=== PATIENT | female | born 1970 | race African-American/Black ===

== ENCOUNTER 2017-01-30 16:26 | Emergency (ER) | payer OTHER ==
[2017-01-30 17:06] VITALS: BP 158/98; PULSE 98; TEMP 98.2
[2017-01-30] MEDS ORDERED: IBUPROFEN 600 MG TABLET (FP) PO ONE ×2 (17:38→17:40)
--- NOTE | 2017-01-30 17:43 | PDOC ---
History of Present Illness - General Chief Complaint: Injury Stated Complaint: LT FOOT PAIN Time Seen by Provider: 01/30/17 17:23 History Source: Patient Exam Limitations: No Limitations - History of Present Illness Initial Comments: 01/30/17 17:44 Chief complaint: Left foot and ankle pain twisted when fell this morning History of present illness: She is a 46 year old female with a history of rheumatoid arthritis and a complaining of left dorsal lateral foot and ankle pain since twisting her left ankle when she fell earlier today. Patient reports that she fell again at work. Patient reports having minimal pain in her right upper arm. Patient denies hitting her head or having any other injuries. Patient reports that she's been favoring her right leg and now feels pain in her right lower leg. Patient has minimal swelling of her left dorsal foot and ankle. She didn not take anything for pain. Patient is ambulating with limp. Occurred: reports: this morning Severity: Yes: moderate Lower Extremity Pain Location: left: foot, ankle Method of Injury: Yes: fell, twisted Modifying Factors: improves with: None Lower Ext. Injury Location - Specific Injury Location Ankle: left pain Foot: left foot pain, left foot swelling (minimal ) Extremity Pain Location - Extremity Pain Location Extremity Pain Locations: left: foot (dorsal lateral aspect), ankle (lateral ) Past History - Past Medical History Allergies/Adverse Reactions: Allergies Allergy/AdvReac Type Severity Reaction Status Date / Time No Known Allergies Allergy Verified 01/30/17 16:59 Home Medications: Ambulatory Orders NK [No Known Home Medication] 01/30/17 Other medical history: denies - Immunization History Immunization Up to Date: Yes - Psycho/Social/Smoking Cessation Hx Anxiety: No Suicidal Ideation: No Smoking Status: No Smoking History: Current every day smoker Have you smoked in the past 12 months: Yes Number of Cigarettes Smoked Daily: 20 Cigars Per Day: 0 Information on smoking cessation initiated: Yes 'Breaking Loose' booklet given: 01/30/17 Hx Alcohol Use: Yes (socially) Drug/Substance Use Hx: No Substance Use Type: Alcohol Review of Systems - Review of Systems Able to Perform ROS?: Yes Constitutional: No: Symptoms Reported HEENTM: No: Symptoms Reported Respiratory: No: Symptoms reported Cardiac (ROS): No: Symptoms Reported ABD/GI: No: Symptoms Reported : No: Symptoms Reported Musculoskeletal: Yes: Joint Pain (left dorsal lateral foot), Joint Swelling ( minimal swelling dorsal lateral foot ) Integumentary: No: Symptoms Reported Neurological: No: Symptoms reported *Physical Exam - Vital Signs Last Vital Signs Temp Pulse Resp BP Pulse Ox 98.2 F 98 H 20 158/98 99 01/30/17 16:59 01/30/17 16:59 01/30/17 16:59 01/30/17 16:59 01/30/17 16:59 - Physical Exam General Appearance: Yes: Appropriately Dressed Vascular Pulses: Doralis-Pedis (L): 4+ Extremity: positive: Normal Capillary Refill, Tender (left dorsal lateral foot, left lateral ankle), Swelling (left lateral ankle). negative: Normal Range of Motion (at left ankle) Integumentary: positive: Normal Color Neurologic: positive: Normal Response, Respond to painful stimul, Responsive. negative: Numbness, Sensory Deficit (left foot/ankle) Deep Tendon Reflexes: Ankle (L): 4+ Procedures - Consent Consent obtained: From Patient - Splinting Splint Location: Left: Foot Pre-Proc Neuro Vasc Exam: normal Post-Proc Neuro Vasc Exam: normal Gwyn Bandage: 3" Complications: No Progress: 01/30/17 18:11 crutches Medical Decision Making - Medical Decision Making 01/30/17 17:52 She is a 46 year old female with a history of rheumatoid arthritis and a complaining of left dorsal lateral foot and ankle pain since twisting her left ankle when she fell earlier today. Patient reports that she fell again at work. Patient reports having minimal pain in her right upper arm. Patient denies hitting her head or having any other injuries. Patient reports that she's been favoring her right leg and now feels pain in her right lower leg. Patient has minimal swelling of her left dorsal foot and ankle. She didn not take anything for pain. Patient is ambulating with limp. 01/30/17 17:52 r/o left ankle/foot fracture PLAN: xray left foot/ankle ibuprofen 600 mg po now gwyn wrap 3 inch left foot and crutches 01/30/17 18:11 01/30/17 18:21 01/30/17 18:45 *DC/Admit/Observation/Transfer Diagnosis at time of Disposition: Sprain of left foot Qualifiers: Encounter type: initial encounter Qualified Code(s): S93.602A - Unspecified sprain of left foot, initial encounter Diagnosis at time of Disposition: (Ruled Out): Left ankle sprain - Discharge Dispostion Disposition: HOME Condition at time of disposition: Stable - Referrals Referrals: Juan David Huang MD [Primary Care Provider] - Jonathan Villanueva MD [Staff Physician] - - Patient Instructions Additional Instructions: Elevate left foot as much as possible and apply ice every 2 hours for 10-15 minutes today and tomorrow follow up with orthopedist in the next few days for further evaluation use crutches for ambulation until pain resolves take 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
== END 2017-01-30 19:02 | disposition home or self-care (01) ==
LOC: JER 16:26 → JERFT 16:26
DX: S93.692A Other sprain of left foot, initial encounter (principal); W19.XXXA Unspecified fall, initial encounter; Y93.89 Activity, other specified; Y92.89 Other specified places as the place of occurrence of the external cause; Y99.0 Civilian activity done for income or pay; M06.80 Other specified rheumatoid arthritis, unspecified site
CPT/HCPCS: 73610-TC-LT; 73630-TC-LT; 99281-25

== ENCOUNTER 2017-03-09 09:01 | Emergency (ER) | payer OTHER ==
[2017-03-09 09:06] VITALS: BP 162/92; PULSE 96; TEMP 98.5; BMI 34.4
--- NOTE | 2017-03-09 09:33 | PDOC ---
History of Present Illness - General Chief Complaint: Eye Problem Stated Complaint: EYE PROBLEM Time Seen by Provider: 03/09/17 09:23 History Source: Patient Exam Limitations: No Limitations - History of Present Illness Initial Comments: 03/09/17 11:37 46 yr female with c/o bilateral eye itching and discharge. started in left eye 2 days ago. no fever no URI symptoms. no medical history. 03/09/17 11:39 Past History - Past Medical History Allergies/Adverse Reactions: Allergies Allergy/AdvReac Type Severity Reaction Status Date / Time No Known Allergies Allergy Verified 03/09/17 09:02 Home Medications: Ambulatory Orders Sulfacetamide Sodium 10% [Bleph-10] 2 drop OU Q4H #2 bottle 03/09/17 Other medical history: none - Immunization History Immunization Up to Date: Yes - Psycho/Social/Smoking Cessation Hx Anxiety: No Suicidal Ideation: No Smoking Status: No Smoking History: Current every day smoker Have you smoked in the past 12 months: Yes Number of Cigarettes Smoked Daily: 20 Cigars Per Day: 0 Information on smoking cessation initiated: Yes 'Breaking Loose' booklet given: 03/09/17 Hx Alcohol Use: No Drug/Substance Use Hx: No Substance Use Type: None Review of Systems - Review of Systems Able to Perform ROS?: Yes Is the patient limited Maltese proficient: No Constitutional: No: Symptoms Reported HEENTM: Yes: Symptoms Reported, See HPI Respiratory: No: Symptoms reported Cardiac (ROS): No: Symptoms Reported ABD/GI: No: Symptoms Reported : No: Symptoms Reported Musculoskeletal: No: Symptoms Reported Integumentary: No: Symptoms Reported Neurological: No: Symptoms reported *Physical Exam - Vital Signs Last Vital Signs Temp Pulse Resp BP Pulse Ox 98.5 F 96 H 18 162/92 100 03/09/17 09:04 03/09/17 09:04 03/09/17 09:04 03/09/17 09:04 03/09/17 09:04 - Physical Exam General Appearance: Yes: Nourished, Appropriately Dressed HEENT: positive: EOMI, JO-ANN, Normal ENT Inspection, TMs Normal, Pharynx Normal, Other (crusted discharge both eyes, mild conjunctival erythema, EOMI no pain no facial tenderness ) Neck: positive: Supple Respiratory/Chest: positive: Normal Breath Sounds Cardiovascular: positive: Regular Rate Gastrointestinal/Abdominal: positive: Normal Bowel Sounds, Soft Musculoskeletal: positive: Normal Inspection Extremity: positive: Normal Capillary Refill, Normal Inspection, Normal Range of Motion Integumentary: positive: Normal Color, Dry, Warm Neurologic: positive: Fully Oriented, Alert, Normal Mood/Affect, Normal Response , Motor Strength 01/03 Medical Decision Making - Medical Decision Making 03/09/17 11:41 cc: bilateral itching to eyes with discharge started yesterday in the left eye now in both no URI symptoms, no vision changes or headache will treat for conjunctivitis *DC/Admit/Observation/Transfer Diagnosis at time of Disposition: Conjunctivitis Qualifiers: Conjunctivitis type: acute Acute conjunctivitis type: unspecified Laterality: bilateral Qualified Code(s): H10.33 - Unspecified acute conjunctivitis, bilateral - Discharge Dispostion Disposition: HOME Condition at time of disposition: Good - Prescriptions Prescriptions: Sulfacetamide Sodium 10% [Bleph-10] 2 drop OU Q4H #2 bottle - Referrals Referrals: Juan David Huang MD [Primary Care Provider] - Bentley Christian MD [Staff Physician] - - Patient Instructions Printed Discharge Instructions: DI for Conjunctivitis Additional Instructions: wash hands frequently to avoid spreading use the drops as directed for 5 days wash eyes with cotton ball soaked in warm water to remove crusting drainage follow with the eye doctor next week for follow up exam call Friday to set up appointment
== END 2017-03-09 09:44 | disposition home or self-care (01) ==
LOC: JERFT 09:01
DX: H10.33 Unspecified acute conjunctivitis, bilateral (principal)
CPT/HCPCS: 99281-25

== ENCOUNTER 2017-06-21 07:56 | Emergency (ER) | payer OTHER ==
[2017-06-21 08:07] VITALS: BP 151/95; PULSE 88; TEMP 98.1; BMI 33.7
[2017-06-21] MEDS ORDERED: diphenhydrAMINE HCL 25 MG CAPSULE (FP) PO ONE ×2 (08:36→08:39)
--- NOTE | 2017-06-21 08:43 | PDOC ---
"History of Present Illness - General Chief Complaint: Rash Stated Complaint: RASH Time Seen by Provider: 06/21/17 08:22 History Source: Patient Exam Limitations: No Limitations - History of Present Illness Initial Comments: 06/21/17 08:41 My chief complaint: Itchy painful rash right lower abdomen around lower back History of present illness: Patient is a 47-year-old female with no significant medical problems here today complaining of an itchy painful rash that started approximately on 06/11/2017 on her right lower abdomen and has spread around to her right lower back. Patient reports having chickenpox as a child. Patient reports that area is extremely painful especially at night. Patient has been taking acetaminophen without relief of pain. Timing/Duration: getting worse Severity: severe Associated Symptoms: reports: rash (along dermatone rt. lower abdomen around to rt. lower back ) Past History - Past Medical History Allergies/Adverse Reactions: Allergies Allergy/AdvReac Type Severity Reaction Status Date / Time No Known Allergies Allergy Verified 06/21/17 08:03 Home Medications: Ambulatory Orders Sulfacetamide Sodium 10% [Bleph-10 Ophthalmic Solution -] 2 drop OU Q4H #2 bottle 03/09/17 Oxycodone HCl/Acetaminophen [Percocet 5-325 mg Tablet] 1 tab PO Q6H PRN #12 tablet MDD 4 06/21/17 Other medical history: NONE - Immunization History Immunization Up to Date: Yes - Suicide/Smoking/Psychosocial Hx Smoking Status: No Smoking History: Current every day smoker Have you smoked in the past 12 months: Yes Number of Cigarettes Smoked Daily: 20 Cigars Per Day: 0 Information on smoking cessation initiated: No 'Breaking Loose' booklet given: 03/09/17 Hx Alcohol Use: Yes (SOCIAL) Drug/Substance Use Hx: No Substance Use Type: None Review of Systems - Review of Systems Able to Perform ROS?: Yes Constitutional: No: Symptoms Reported HEENTM: No: Symptoms Reported Respiratory: No: Symptoms reported Cardiac (ROS): No: Symptoms Reported ABD/GI: No: Symptoms Reported : No: Symptoms Reported Musculoskeletal: No: Symptoms Reported Integumentary: Yes: Rash (tiny scabbed areas rt. lower abdomen radiates around to lower back slightly pruritic and painful) Neurological: No: Symptoms reported *Physical Exam - Vital Signs Last Vital Signs Temp Pulse Resp BP Pulse Ox 98.1 F 88 20 151/95 100 06/21/17 08:00 06/21/17 08:00 06/21/17 08:00 06/21/17 08:00 06/21/17 08:00 - Physical Exam General Appearance: Yes: Appropriately Dressed Respiratory/Chest: positive: Lungs Clear, Normal Breath Sounds. negative: Chest Tender, Respiratory Distress Cardiovascular: positive: Regular Rhythm, Regular Rate, S1, S2 Integumentary: positive: Rash (tiny scabbed area non confluent rt. lower abdomen / radiates around to lower back ) Neurologic: positive: Alert, Normal Response, Responsive Medical Decision Making - Medical Decision Making 06/21/17 08:43 Patient is a 47-year-old female with no significant medical problems here today complaining of an itchy painful rash that started approximately on 06/11/2017 on her right lower abdomen and has spread around to her right lower back. Patient reports having chickenpox as a child. Patient reports that area is extremely painful especially at night. Patient has been taking acetaminophen without relief of pain. Herpetic Zoster PLAN: BENADRYL 25 MG PO NOW THAN EVERY 6 HRS PRN PERCOCET 5MG/325MG PO NOW THAN EVBERY 6 HRS PRN # 12 TABS FOLLOW UP WITH PCP AND NEUROLOGIST 06/21/17 08:57 Search Terms: Rosa Rubin, 1970 Search Date: 06/21/2017 08:56:07 AM The Drug Utilization Report below displays all of the controlled substance prescriptions, if any, that your patient has filled in the last twelve months. The information displayed on this report is compiled from pharmacy submissions to the Department, and accurately reflects the information as submitted by the pharmacies. This report was requested by: Elissa Byrd | Reference #: [id number] *DC/Admit/Observation/Transfer Diagnosis at time of Disposition: Herpes zoster Qualifiers: Herpes zoster complications: without complications Qualified Code(s): B02.9 - Zoster without complications - Discharge Dispostion Disposition: HOME Condition at time of disposition: Stable - Prescriptions Prescriptions: Oxycodone HCl/Acetaminophen [Percocet 5-325 mg Tablet] 1 tab PO Q6H PRN #12 tablet MDD 4 PRN Reason: Severe Pain - Referrals Referrals: Juan David Huang MD [Primary Care Provider] - Rigoberto Roberts MD [Staff Physician] - - Patient Instructions Additional Instructions: fOLLOW UP WITH primary care provider as soon as possible follow up with neurologist for further evaluation Wash her hands after scratching area and avoid being around anyone You may purchase diphenhydramine tablets and take as directed for itchiness Return to emergency room if symptoms worsen or any new symptoms develop PATIENT voiced understanding of discharge instructions and all questions were answered"
== END 2017-06-21 08:52 | disposition home or self-care (01) ==
LOC: JER 07:56 → JERFT 07:56
DX: B02.9 Zoster without complications (principal); F17.210 Nicotine dependence, cigarettes, uncomplicated
CPT/HCPCS: 99281-25

== ENCOUNTER 2017-09-22 18:19 | Inpatient (IN) | payer OTHER ==
--- NOTE | 2017-09-22 18:50 | PDOC ---
Rapid Medical Evaluation Chief Complaint: CVA/TIA Time Seen by Provider: 09/22/17 18:45 Medical Evaluation: Allergies Allergy/AdvReac Type Severity Reaction Status Date / Time No Known Allergies Allergy Verified 09/22/17 18:39 Vital Signs Temp Pulse Resp BP Pulse Ox 98.0 F 95 H 18 139/71 100 09/22/17 18:40 09/22/17 18:40 09/22/17 18:40 09/22/17 18:40 09/22/17 18:40 09/22/17 18:45 The patient presents with a chief complaint of: [Back pain, neck pain swelling to the right eyelid. Was seen by the MD, because of the pain was sent to the ER for evaluation. ] I have performed a brief in-person evaluation of this patient. Pertinent physical exam findings: vss, [Minor swelling to the right eyelid. Lungs clear, RRR. Steady gait. ] I have ordered the following: None The patient will proceed to the ED for further evaluation. Discharge Disposition - Diagnosis Chronic neck and back pain Swollen eyelid Qualifiers: Laterality: right Qualified Code(s): H02.843 - Edema of right eye, unspecified eyelid TIA (transient ischemic attack) Qualifiers: Transient cerebral ischemia type: unspecified Qualified Code(s): G45.9 - Transient cerebral ischemic attack, unspecified - Discharge Dispostion Disposition: HOME Condition at time of disposition: Improved - Prescriptions - Referrals - Patient Instructions - Post Discharge Activity
--- NOTE | 2017-09-22 20:54 | PDOC ---
History of Present Illness - General Chief Complaint: CVA/TIA Stated Complaint: neck, back pain, ptosis PCP SENT Time Seen by Provider: 09/22/17 18:45 History Source: Patient - History of Present Illness Initial Comments: 09/22/17 21:09 47 year old female with right sided shoulder and back pain with right eye ptosis swelling since this morning. patient reports with chronic back pain today worsening right shoulder/ neck pain with numbness to right side. patient was send by [facility] for evaluation. 09/22/17 23:32 Past History - Past Medical History Allergies/Adverse Reactions: Allergies Allergy/AdvReac Type Severity Reaction Status Date / Time No Known Allergies Allergy Verified 09/22/17 18:39 Home Medications: Ambulatory Orders Sulfacetamide Sodium 10% [Bleph-10 Ophthalmic Solution -] 2 drop OU Q4H #2 bottle 03/09/17 Oxycodone HCl/Acetaminophen [Percocet 5-325 mg Tablet] 1 tab PO Q6H PRN #12 tablet MDD 4 06/21/17 COPD: No DVT: No HTN: Yes Other medical history: neck, ra, - Immunization History Immunization Up to Date: Yes - Suicide/Smoking/Psychosocial Hx Smoking Status: Yes Smoking History: Current every day smoker Have you smoked in the past 12 months: Yes Number of Cigarettes Smoked Daily: 20 Cigars Per Day: 0 Information on smoking cessation initiated: Yes 'Breaking Loose' booklet given: 03/09/17 Hx Alcohol Use: Yes (SOCIAL) Drug/Substance Use Hx: No Substance Use Type: None Neuro Specific PMHX - Complaint Specific PMHX Other Neuro History: chronic back pain Review of Systems - Review of Systems Able to Perform ROS?: Yes Is the patient limited French proficient: No HEENTM: Yes: Eye Pain (right eye, droopy eye lid) Neurological: Yes: Weakness *Physical Exam - Vital Signs Last Vital Signs Temp Pulse Resp BP Pulse Ox 98.0 F 95 H 18 139/71 100 09/22/17 18:40 09/22/17 18:40 09/22/17 18:40 09/22/17 18:40 09/22/17 18:40 - Physical Exam General Appearance: Yes: Appropriately Dressed HEENT: positive: Other (+ EOM, + right eyelid ptosis) Respiratory/Chest: positive: Lungs Clear, Normal Breath Sounds Cardiovascular: positive: Regular Rhythm, Regular Rate Gastrointestinal/Abdominal: positive: Normal Bowel Sounds, Soft Musculoskeletal: positive: Vertebral Tenderness (+ cernical neck tenderness) Extremity: positive: Normal Capillary Refill, Normal Inspection, Normal Range of Motion Integumentary: positive: Normal Color, Dry, Warm Neurologic: positive: Fully Oriented, Alert, Normal Mood/Affect NIH Stroke Scale - Last Known Well Date/Time & Onset Date Last Known Well: 09/22/17 Time Last Known Well: 08:00 - Initial Evaluation Level of consciousness: Alert Ask patient the month and their age: Answers both correctly Ask patient to open & close eyes; make fist and let go: Obeys both correctly Best gaze (horizontal eye movement): Normal Visual field testing: No visual field loss Facial paresis (Show teeth/raise eyebrows/close eyes tight): Minor paralysis ( flattened nasolabial fold, asymmetry on smiling) Motor Function: Left Arm: Normal Motor Function: Right Arm: Normal (extends arm 90 (or 45) degrees for 10 seconds without drift Motor Function: Left Leg: Normal (extends leg 30 degrees for 5 seconds without drift) Motor Function: Right Leg: Normal (extends leg 30 degrees for 5 seconds without drift) Limb Ataxia: No ataxia Sensory(Use pinprick test arms,legs,trunk,face/side to side): Mild to moderate decrease in sensation (left > right) Best language (Describe picture, name items, read sentences): No Aphasia Dysarthria (read several words): Normal articulation Extinction and Inattention: No abnormality - Total Score NIH Stroke Scale Score: 2 Heart Score/ECG Review - History History: Slightly suspicious - Electrocardiogram EKG: Normal - Age Age: 45-65 - Risk Factors Risk Factors Heart Score: Yes Hx Hypercholesterolemia, Yes Hx Hypertension, Yes Smoking History Based on the list above the patient has:: >/=3 risk factors or Hx atherosclerotic disease - Troponin Troponin: </= normal limit - Score Heart Score - Total: 3 - ECG Intrepretation Rhythm: Regular Rhythm Comment:: 09/22/17 23:21 NSR: 80 bpm Critical Care Time/MDM Note - Medical Decision Making Note: 09/22/17 23:04 patient reports pain relief. no Ptosis of right eye noted. right sided sensation less than left side. will 09/22/17 23:21 ptosis of right eye improved. + decrease in sensation to the right side. will admit to the Hospital for further management of care. 09/22/17 23:34 Discharge Disposition - Diagnosis Chronic neck and back pain Swollen eyelid Qualifiers: Laterality: right Qualified Code(s): H02.843 - Edema of right eye, unspecified eyelid TIA (transient ischemic attack) Qualifiers: Transient cerebral ischemia type: unspecified Qualified Code(s): G45.9 - Transient cerebral ischemic attack, unspecified - Discharge Dispostion Last Admission D/C Date: 06/26/97 Admit: Yes - Referrals Referrals: Juan David Huang MD [Primary Care Provider] - - Patient Instructions - Post Discharge Activity
[2017-09-22] MEDS ORDERED: morphine CARPU-JECT 4 MG/1 ML DISP.SYRIN IVPUSH ONE (21:01)
[2017-09-22] MEDS ORDERED: morphine CARPU-JECT 4 MG/1 ML DISP.SYRIN ONE (21:32)
[2017-09-22 21:44] LABS: BASO % 0.2 % (0-2.0); EOS % 4.3 % (0-4.5); HEMATOCRIT 41.7 % (32.4-45.2); HEMOGLOBIN 13.3 GM/dL (10.7-15.3); LYMPH % 41.7 % (8-40); MCH 27.7 pg (25.7-33.7); MCHC 31.9 g/dl (32.0-36.0); MEAN CELL VOLUME 86.9 fl (80-96); MEAN PLT VOLUME 7.5 fl (7.5-11.1); MONO % 6.1 % (3.8-10.2); NEUT % 47.7 % (42.8-82.8); PLATELET COUNT 274 K/MM3 (134-434); RDW 16.7 % (11.6-15.6); WHITE BLOOD COUNT 8.7 K/mm3 (4.0-10.0)
[2017-09-22 21:59] LABS: URINE APPEARANCE SLCLOUDY; URINE BILIRUBIN NEGATIVE (NEGATIVE); URINE BLOOD NEGATIVE (NEGATIVE); URINE COLOR YELLOW; URINE GLUCOSE (UA) NEGATIVE (NEGATIVE); URINE KETONE TRACE (NEGATIVE); URINE LEUK ESTERASE TRACE (NEGATIVE); URINE NITRITE NEGATIVE (NEGATIVE); URINE PROTEIN NEGATIVE (NEGATIVE)
[2017-09-22 22:04] LABS: EPI CELLS FEW /HPF (FEW); URINE BACTERIA RARE /hpf (NONE SEEN); URINE HYALINE CAST 3 /lpf; URINE MUCUS MANY
[2017-09-22 22:04] LABS: INR 1.04 (0.82-1.09); PROTHROMBIN TIME (PATIENT) 11.7 SEC (9.98-11.88)
[2017-09-22 22:21] LABS: ALBUMIN 3.6 g/dl (3.4-5.0); ALK PHOS 120 U/L (45-117); ANION GAP 7 (8-16); BILIRUBIN,TOTAL 0.2 mg/dL (0.2-1.0); BLOOD UREA NITROGEN 8 mg/dL (7-18); CALCIUM 8.3 mg/dL (8.5-10.1); CHLORIDE 106 mmol/L (98-107); CHOLESTEROL 252 mg/dL (50-200); CO2 28 mmol/L (21-32); CREATININE 0.6 mg/dL (0.55-1.02); GLUCOSE,RANDOM 86 mg/dL (74-106); HDL CHOLESTEROL 52 mg/dL (40-60); LDL CHOLESTEROL (ONLY SJRH) 174 mg/dL (5-100); POTASSIUM 3.6 mmol/L (3.5-5.1); SGOT/AST 17 U/L (15-37); SGPT/ALT 20 U/L (12-78); SODIUM 141 mmol/L (136-145); TOT PROT 7.1 g/dl (6.4-8.2); TRIGLYCERIDES 100 mg/dL (35-160)
[2017-09-22] MEDS ORDERED: KETOROLAC TROMETHAMINE 30 MG/1 ML VIAL IM ONE (23:05)
--- NOTE | 2017-09-23 00:02 | PN ---
Teaching Attending Note Name of Resident: Tania Duvall ATTENDING PHYSICIAN STATEMENT I saw and evaluated the patient. I reviewed the resident's note and discussed the case with the resident. I agree with the resident's findings and plan as documented. SUBJECTIVE: 47 F current smoker, with chronic back pain who presents with r. Ptosis and edmea with right shoulder and neck pain. Also with associated numbness on right side. She was sent in by her PMD for evaluation. States that she has intermittent pain "15/10" severe and sharp to her right shoulder. No chest pain or pressure. No headaches, dizziness, or lightheadedness. No N/V/D. OBJECTIVE: Physical: VS: Vital Signs Period Temp Pulse Resp BP Sys/Lopez Pulse Ox Last 24 Hr 98.0 F 95 18 139/71 100 GEN: NAD, Resting in bed, AA0X3 HEENT: NCAT, PERRL, Throat without erythema or exudates CARD: RRRS1, S2 RESP: CATB ABD: BSX4, NTD to Palpation EXT:- C/C/E NEURO: CN II-XII intact, decreased MS 4/5 RUE, Decreased sensation RUE CBCD WBC 8.7 K/mm3 (4.0-10.0) 09/22/17 21:25 RBC 4.80 M/mm3 (3.60-5.2) 09/22/17 21:25 Hgb 13.3 GM/dL (10.7-15.3) 09/22/17 21:25 Hct 41.7 % (32.4-45.2) 09/22/17 21:25 MCV 86.9 fl (80-96) 09/22/17 21:25 MCHC 31.9 g/dl (32.0-36.0) L 09/22/17 21:25 RDW 16.7 % (11.6-15.6) H D 09/22/17 21:25 Plt Count 274 K/MM3 (134-434) D 09/22/17 21:25 MPV 7.5 fl (7.5-11.1) 09/22/17 21:25 CMP Sodium 141 mmol/L (136-145) 09/22/17 21:25 Potassium 3.6 mmol/L (3.5-5.1) 09/22/17 21:25 Chloride 106 mmol/L (98-107) 09/22/17 21:25 Carbon Dioxide 28 mmol/L (21-32) 09/22/17 21:25 Anion Gap 7 (8-16) L 09/22/17 21:25 BUN 8 mg/dL (7-18) 09/22/17 21:25 Creatinine 0.6 mg/dL (0.55-1.02) 09/22/17 21:25 Creat Clearance w eGFR > 60 (>60) 09/22/17 21:25 Random Glucose 86 mg/dL (74-106) 09/22/17 21:25 Calcium 8.3 mg/dL (8.5-10.1) L 09/22/17 21:25 Total Bilirubin 0.2 mg/dL (0.2-1.0) D 09/22/17 21:25 AST 17 U/L (15-37) 09/22/17 21:25 ALT 20 U/L (12-78) 09/22/17 21:25 Alkaline Phosphatase 120 U/L (45-117) H 09/22/17 21:25 Total Protein 7.1 g/dl (6.4-8.2) 09/22/17 21:25 Albumin 3.6 g/dl (3.4-5.0) 09/22/17 21:25 CARDIAC ENZYMES Creatine Kinase 584 IU/L (26-192) H 09/22/17 21:25 Troponin I < 0.02 ng/ml (0.00-0.05) 09/22/17 21:25 CT HEAD- 0.4 cm R. Basal ganglia infarct, which is probably chronic, less likely sub-acute Cervical Spine CT wo Con: Athrosclerosis along carotid a. bifurcations. Mod - Marked C5-C6 degen. space narrowing, mild-mod C2-C3 arthropaththy and C5-C6 foraminal stenosis EKG: NSR CXR- Pending ASSESSMENT AND PLAN: 47 F who presents with back pain, r. eye ptosis and numbness of right who is being ruled out for CVA/TIA 1.) CVA/TIA - ASA - Statin - Chronic basal ganglia infarct - Echo/Carotid Us - Trend Trop/EKG - Lipid Panel/HgBA1c - TSH, B12, Folate - ESR - MRI Brain wo Con - Neuro consult 2.) DVT Ppx - Scds Place in Obs Stroke Tele
--- NOTE | 2017-09-23 00:40 | HP ---
CHIEF COMPLAINT: neck pain, R facial, RUE, RLE numbness x this AM PCP: Dr. Huang HISTORY OF PRESENT ILLNESS: 47 y/o F with PMH RA (currently not on meds), who was sent to the ED after seeing her PCP (Dr. Huang) for neck pain, as well as R facial, RUE, RLE numbness since this morning. As per pt, suddenly this morning, she developed worsening neck pain that was intermittent and stabbing and radiated to her R elbow. It was a/w tingling in her RUE and back. During this time, pt also noticed numbness on the R side of her face (especially around her eye), as well as in her RUE and RLE. She tried to take two tabs of alleve, which did not alleviate her pain, so she saw her PCP, who recommended that she come to the ED for further workup. Pt endorsed mild nausea without emesis. Otherwise, she denied SPENCER, fever, chills, or changes in urinary or bowel function. ER course was notable for: (1) toradol 30 mg IV (2) morphine (3) CT head: chronic R basal ganglia infarct Recent Travel: none PAST MEDICAL HISTORY: RA (currently not on meds for) PAST SURGICAL HISTORY: L knee surgery, 2 c-sections Social History: Smoking: current smoker - 1 ppd x 30yrs, tried chantix did not help Alcohol: socially Drugs: denies Family History: brother- DM, mother- HTN Allergies No Known Allergies Allergy (Verified 09/22/17 18:39) HOME MEDICATIONS: Home Medications Medication Instructions Recorded Sulfacetamide Sodium 10% [Bleph-10 2 drop OU Q4H #2 bottle 03/09/17 Ophthalmic Solution -] Oxycodone HCl/Acetaminophen 1 tab PO Q6H PRN #12 tablet MDD 4 06/21/17 [Percocet 5-325 mg Tablet] REVIEW OF SYSTEMS CONSTITUTIONAL: Absent: fever, chills, diaphoresis, generalized weakness, malaise, loss of appetite, weight change HEENT: Absent: rhinorrhea, nasal congestion, throat pain, throat swelling, difficulty swallowing, mouth swelling, ear pain, eye pain, visual changes CARDIOVASCULAR: Absent: chest pain, syncope, palpitations, irregular heart rate, lightheadedness , peripheral edema RESPIRATORY: Absent: cough, shortness of breath, dyspnea with exertion, orthopnea, wheezing, stridor, hemoptysis GASTROINTESTINAL: Absent: abdominal pain, abdominal distension, nausea, vomiting, diarrhea, constipation, melena, hematochezia GENITOURINARY: Absent: dysuria, frequency, urgency, hesitancy, hematuria, flank pain, genital pain MUSCULOSKELETAL: +neck pain, tingling Absent: myalgia, arthralgia, joint swelling, back pain, neck pain SKIN: Absent: rash, itching, pallor HEMATOLOGIC/IMMUNOLOGIC: Absent: easy bleeding, easy bruising, lymphadenopathy, frequent infections ENDOCRINE: Absent: unexplained weight gain, unexplained weight loss, heat intolerance, cold intolerance NEUROLOGIC: +RUE, RLE weakness, R facial weakness Absent: headache, focal weakness or paresthesias, dizziness, unsteady gait, seizure, mental status changes, bladder or bowel incontinence PSYCHIATRIC: Absent: anxiety, depression, suicidal or homicidal ideation, hallucinations. PHYSICAL EXAMINATION Vital Signs - 24 hr 09/22/17 18:40 Temperature 98.0 F Pulse Rate 95 H Respiratory 18 Rate Blood Pressure 139/71 O2 Sat by Pulse 100 Oximetry (%) GENERAL: Awake, alert, and fully oriented, in no acute distress. HEAD: Normal with no signs of trauma. EYES: Pupils equal, round and reactive to light, extraocular movements intact, sclera anicteric, conjunctiva clear. EARS, NOSE, THROAT: Ears normal, nares patent, oropharynx clear without exudates. Moist mucous membranes. NECK: supple. pain with active and passive ROM LUNGS: Breath sounds equal, clear to auscultation bilaterally. No wheezes, and no crackles. No accessory muscle use. HEART: Regular rate and rhythm, normal S1 and S2 without murmur, rub or gallop. ABDOMEN: Soft, obese, nontender, not distended, normoactive bowel sounds, no guarding, no rebound, no masses. MUSCULOSKELETAL: pain with shoulder resistance b/l (R>L). decreased motor strength in RUE, RLE 3/5 vs. 4/5 in LUE, LLE. R sided facial sensation- diminished LOWER EXTREMITIES: 2+ posterior tibial pulses, warm, well-perfused. No calf tenderness. No peripheral edema. NEUROLOGICAL: Cranial nerves II-XII intact. Laboratory Results 09/22/17 09/22/17 09/22/17 21:25 21:25 21:45 WBC 8.7 Hgb 13.3 Hct 41.7 Plt Count 274 D Sodium 141 Potassium 3.6 Chloride 106 Carbon Dioxide 28 BUN 8 Creatinine 0.6 Alkaline Phosphatase 120 H Creatine Kinase 584 H Cholesterol 252 H Total LDL Cholesterol 174 H Urine Color Yellow Urine Ketones Trace H Urine Urobilinogen 2.[address] head: chronic R basal gangliar infarct Cervical spine CT: atherosclerotic carotid calcification, C5-C6 degenerative disk space narrowing. Moderate c5-c6 foraminal stenosis EKG: WNL ASSESSMENT/PLAN: 47 y/o F with PMH RA (currently not on meds), who was sent to the ED after seeing her PCP (Dr. Huang) for neck pain, as well as R facial, RUE, RLE numbness since this morning. Pt admitted to tele observation to r/o CVA/TIA. #R/o CVA/TIA -Pt started on aspirin 81mg PO qd -Started on atorvastatin 40mg PO qd -F/u ECHO to r/o any emboli -F/u carotid doppler u/s -Trend trops x 3 -F/u lipid panel, HbA1c, TSH, B12, Folate, ESR -MRI w/o contrast -Neuro consult- Dr. Escobar -Tele monitoring #Neck pain -received morphine 2mg this AM #PPX DVT: SCD's #F/E/N -no fluids needed at this time, as pt able to eat -Monitor electrolytes -regular diet #Dispo Tele obs Visit type - Emergency Visit Emergency Visit: Yes ED Registration Date: 09/22/17 Care time: The patient presented to the Emergency Department on the above date and was hospitalized for further evaluation of their emergent condition. - New Patient This patient is new to me today: Yes Date on this admission: 09/23/17 - Critical Care Critical Care patient: No
[2017-09-23] MEDS ORDERED: ASPIRIN 81 MG CHEWABLE TABLETS ONE (00:54)
[2017-09-23] MEDS ORDERED: ASPIRIN COATED 81 MG TABLET.EC PO ONE (01:00)
[2017-09-23] MEDS ORDERED: morphine CARPU-JECT 2 MG/1 ML DISP.SYRIN IVPUSH ONE (03:06)
[2017-09-23] MEDS ORDERED: morphine CARPU-JECT 4 MG/1 ML DISP.SYRIN ONE (03:08)
[2017-09-23 07:22] VITALS: BMI 36.3
--- NOTE | 2017-09-23 08:04 | PN ---
Progress Note, Physician - Current Medication List Current Medications: Active Medications Aspirin (Ecotrin -) 81 mg PO DAILY DANIEL Atorvastatin Calcium (Lipitor -) 40 mg PO HS DANIEL - Objective Vital Signs: Vital Signs Temperature 99.4 F 09/23/17 06:00 Pulse Rate 81 09/23/17 06:00 Respiratory Rate 16 09/23/17 06:00 Blood Pressure 111/70 09/23/17 06:00 O2 Sat by Pulse Oximetry (%) 99 09/23/17 04:29 Labs: CBC, BMP 09/22/17 21:25 09/22/17 21:25 INR, PTT INR 1.04 (0.82-1.09) 09/22/17 21:25 Problem List - Problems (1) TIA (transient ischemic attack) Assessment/Plan: -ct old cva -cardio -Pt started on aspirin 81mg PO qd -Started on atorvastatin 40mg PO qd -F/u ECHO to r/o any emboli -F/u carotid doppler u/s -Trend trops x 3 -F/u lipid panel, HbA1c, TSH, B12, Folate, ESR -MRI w/o contrast -Neuro consult- Dr. Escobar -Tele monitoring Code(s): G45.9 - TRANSIENT CEREBRAL ISCHEMIC ATTACK, UNSPECIFIED Qualifiers: Transient cerebral ischemia type: unspecified Qualified Code(s): G45.9 - Transient cerebral ischemic attack, unspecified (2) HTN (hypertension) Assessment/Plan: monitor on meds Code(s): I10 - ESSENTIAL (PRIMARY) HYPERTENSION (3) Discogenic cervical pain Assessment/Plan: -spinal stenosis -neuro -gabapentin Code(s): M54.2 - CERVICALGIA (4) Chronic neck and back pain Code(s): M54.2 - CERVICALGIA; M54.9 - DORSALGIA, UNSPECIFIED
[2017-09-23 08:36] LABS: EOS % 5.2 % (0-4.5); HEMATOCRIT 39.4 % (32.4-45.2); HEMOGLOBIN 12.6 GM/dL (10.7-15.3); LYMPH % 37.7 % (8-40); MCH 27.6 pg (25.7-33.7); MCHC 31.9 g/dl (32.0-36.0); MEAN CELL VOLUME 86.6 fl (80-96); MEAN PLT VOLUME 7.8 fl (7.5-11.1); MONO % 5.4 % (3.8-10.2); NEUT % 50.7 % (42.8-82.8); PLATELET COUNT 270 K/MM3 (134-434); RBC 4.55 M/mm3 (3.60-5.2); RDW 16.8 % (11.6-15.6); WHITE BLOOD COUNT 8.2 K/mm3 (4.0-10.0)
[2017-09-23 09:06] LABS: CHLORIDE 103 mmol/L (98-107); SODIUM 140 mmol/L (136-145)
[2017-09-23 09:32] LABS: ANION GAP 11 (8-16); BLOOD UREA NITROGEN 9 mg/dL (7-18); CALCIUM 8.7 mg/dL (8.5-10.1); CO2 26 mmol/L (21-32); CREATININE 0.6 mg/dL (0.55-1.02); GLUCOSE,RANDOM 88 mg/dL (74-106); MAGNESIUM 2.1 mg/dL (1.8-2.4); PHOSPHOROUS 4.2 mg/dL (2.5-4.9)
[2017-09-23] MEDS: ASPIRIN COATED 81 MG TABLET.EC PO SCH (09:41)
[2017-09-23] MEDS: ESCITALOPRAM OXALATE 10 MG TABLET (FP) PO SCH (09:47)
[2017-09-23] MEDS: NICOTINE 21 MG/24 HOURS TOPICAL PATCH TD SCH (09:47)
[2017-09-23] MEDS ORDERED: ASPIRIN COATED 81 MG TABLET.EC PO SCH (10:00)
--- NOTE | 2017-09-23 11:41 | CON.CARD ---
Consult Consult Specialty:: Cardiology Referred by:: demetrius Lui Reason for Consultation:: TIA - History of Present Illness Chief Complaint: shoulder pain History of Present Illness: 47 F with a pmhx of htn, chronic back pain, and smoker 1 ppd who yesterday developed right shoulder pain. Pain was severe and associated with right facial swelling as per patient and right ptosis. Also some right arm and leg numbness. Pain has decreased but persisted and is reproducible to palpation. No chest pain or dyspnea or palpitations. No n/v. No f/c/s. ET few blocks due to chronic knee and back pain but no chest pain or dyspnea on exertion. - History Source History Provided By: Patient, Medical Record - Past Medical History ...LMP: 10/02/12 ...: No - Alcohol/Substance Use Hx Alcohol Use: Yes (SOCIAL) - Smoking History Smoking history: Current every day smoker Have you smoked in the past 12 months: Yes Aproximately how many cigarettes per day: 20 Home Medications - Allergies Allergies/Adverse Reactions: Allergies Allergy/AdvReac Type Severity Reaction Status Date / Time No Known Allergies Allergy Verified 09/22/17 18:39 - Home Medications Home Medications: Ambulatory Orders Sulfacetamide Sodium 10% [Bleph-10 Ophthalmic Solution -] 2 drop OU Q4H #2 bottle 03/09/17 Vital Signs: Vital Signs Temperature 99.4 F 09/23/17 06:00 Pulse Rate 81 09/23/17 06:00 Respiratory Rate 16 09/23/17 06:00 Blood Pressure 111/70 09/23/17 06:00 O2 Sat by Pulse Oximetry (%) 99 09/23/17 04:29 Constitutional: Yes: No Distress Neck: Yes: WNL Respiratory: Yes: CTA Bilaterally Gastrointestinal: Yes: WNL, Normal Bowel Sounds, Soft Cardiovascular: Yes: Regular Rate and Rhythm JVD: No Carotid Bruit: No PMI: Non-Displaced Heart Sounds: Yes: S1, S2 Murmur: No: Systolic Murmur Extremities: Yes: Other (tenderness to touch of right shoulder) Edema: No - Other Data Labs, Other Data: CBC, BMP 09/23/17 07:00 09/23/17 07:00 INR, PTT INR 1.04 (0.82-1.09) 09/22/17 21:25 Troponin, BNP 01/09/23/17 09/23/17 21:25 03:10 04:00 Troponin I < 0.02 Cancelled < 0.02 Troponin, BNP 09/22/17 09/23/17 09/23/17 21:25 03:10 04:00 Troponin I < 0.02 Cancelled < 0.02 Imaging - Results Chest X-ray: Report Reviewed Cat Scan: Report Reviewed Assessment/Plan 47 F with a pmhx of htn, chronic back pain, and smoker 1 ppd who yesterday developed right shoulder pain. Pain was severe and associated with right facial swelling as per patient and right ptosis. Also some right arm and leg numbness. Pain has decreased but persisted and is reproducible to palpation. No chest pain or dyspnea or palpitations. No n/v. No f/c/s. ET few blocks due to chronic knee and back pain but no chest pain or dyspnea on exertion. 1) Right hsoulder pain and arm numbness and facial symptoms. -CXR and chest CT with no acute lung pathology BP controlled Smoking cessation Troponins negative [address] head old basal ganglia infarct. Plan for neuro evaluation for possible TIA symptoms. Has carotid atherosclerosis. Aspirin/statin/bp control. Plan for carotid ultrasound and echocardiogram. Also consider musculskeletal as very symptomatic to touch.
[2017-09-23] MEDS: GABAPENTIN 100 MG CAPSULE (FP) PO SCH ×2 (13:55→21:30)
[2017-09-23] MEDS ORDERED: PNEUMOC 13-VAL CONJ-DIP CRM/PF 0.5 ML DISP.SYRIN IM ONE (17:00)
[2017-09-23] MEDS ORDERED: ATORVASTATIN CA 40 MG TABLET (FP) PO SCH (22:00)
[2017-09-24] MEDS: GABAPENTIN 100 MG CAPSULE (FP) PO SCH (06:58)
--- NOTE | 2017-09-24 07:41 | DS ---
Physical Examination Vital Signs: Vital Signs Temperature 98.1 F 09/24/17 06:00 Pulse Rate 81 09/24/17 06:00 Respiratory Rate 18 09/24/17 06:00 Blood Pressure 113/85 09/24/17 06:00 O2 Sat by Pulse Oximetry (%) 98 09/23/17 21:00 Labs: CBC, BMP 09/23/17 07:00 09/23/17 07:00 Discharge Summary Reason For Visit: TRANSIENT CEREBRAL ISCHEMIA CHRONIC NECK Current Active Problems Chronic neck and back pain (Acute) Discogenic cervical pain (Acute) HTN (hypertension) (Acute) Swollen eyelid (Acute) TIA (transient ischemic attack) (Acute) Condition: Improved - Instructions Referrals: Juan David Huang MD [Primary Care Provider] - 1 Week Disposition: HOME - Home Medications Comprehensive Discharge Medication List: Ambulatory Orders Sulfacetamide Sodium 10% [Bleph-10 Ophthalmic Solution -] 2 drop OU Q4H #2 bottle 03/09/17 Aspirin Coated [Ecotrin -] 81 mg PO DAILY tablet.ec 09/24/17 Atorvastatin Ca [Lipitor] 40 mg PO HS #30 tablet 09/24/17 Escitalopram Oxalate [Lexapro -] 10 mg PO DAILY #30 tablet 09/24/17 Gabapentin [Neurontin -] 100 mg PO TID #90 capsule 09/24/17 Metoprolol Succinate [Toprol Xl -] 25 mg PO DAILY #30 tab.sr.24h 09/24/17 Nicotine Patch [Nicoderm Patch -] 21 mg TD DAILY patch 09/24/17
--- NOTE | 2017-09-24 08:05 | EKG ---
Test Reason : Blood Pressure : / mmHG Vent. Rate : 080 BPM Atrial Rate : 080 BPM P-R Int : 166 ms QRS Dur : 102 ms QT Int : 396 ms P-R-T Axes : 053 018 042 degrees QTc Int : 456 ms NORMAL SINUS RHYTHM NORMAL ECG NO PREVIOUS ECGS AVAILABLE Confirmed by JAMEEL PERDOMO, YA ([id number]) on 09/24/2017 8:04:57 AM Referred By: Confirmed By:YA JORGENSEN MD
[2017-09-24] MEDS ORDERED: PT OWN MED DRAWER 7, Y5N ONE (08:51)
[2017-09-24] MEDS: ASPIRIN COATED 81 MG TABLET.EC PO SCH (09:15)
[2017-09-24] MEDS: NICOTINE 21 MG/24 HOURS TOPICAL PATCH TD SCH (09:15)
[2017-09-24] MEDS: ESCITALOPRAM OXALATE 10 MG TABLET (FP) PO SCH (09:15)
[2017-09-24 09:18] VITALS: BP 119/74; PULSE 82; TEMP 98.2
== END 2017-09-24 09:19 | disposition home or self-care (01) | DRG 69 ==
LOC: JER 18:19 → JERBED 23:55 → UNDOADMIN 09-23 00:14 → JERBED 09-23 00:14 → J4W 09-23 05:19
PROVIDERS: ADMIT Internal Medicine; ATTEND Family Medicine
DX: G45.9 Transient cerebral ischemic attack, unspecified (principal); H02.89 Other specified disorders of eyelid; M48.02 Spinal stenosis, cervical region; G89.29 Other chronic pain; M54.9 Dorsalgia, unspecified; I10 Essential (primary) hypertension; F17.210 Nicotine dependence, cigarettes, uncomplicated
CPT/HCPCS: 36415; 70450-TC; 70551-TC; 71046-TC; 71250-TC; 72125-TC; 80048; 80053; 80061; 81003; 81015; 82465; 82550; 82553; 82607; 82746; 83036; 83718; 83721; 83735; 84100; 84443; 84478; 84484; 84703; 85025; 85610; 85651; 86850; 86900; 86901; 90670; 93005; 93010; 93306-TC; 99284-25; 99285-25

== ENCOUNTER 2018-01-22 19:15 | Emergency (ER) | payer OTHER ==
[2018-01-22 19:26] VITALS: BP 140/109; PULSE 100; TEMP 98.4; BMI 34.6
--- NOTE | 2018-01-22 19:27 | PDOC ---
Rapid Medical Evaluation Time Seen by Provider: 01/22/18 19:23 Medical Evaluation: Allergies Allergy/AdvReac Type Severity Reaction Status Date / Time No Known Allergies Allergy Verified 09/22/17 18:39 01/22/18 19:23 I have performed a brief in-person evaluation of this patient. The patient presents with a chief complaint of sent to pmd for further evaluation due to frequent falling x 1 month. Also reports joint and muscle pain and numbness with tingling Pertinent physical exam findings: NAD unlabored breathing no mid spinal tenderness I have ordered the following: iv access, labs ordered The patient will proceed to the ED for further evaluation.
[2018-01-22 19:41] LABS: BASO % 0.8 % (0-2.0); EOS % 3.8 % (0-4.5); HEMATOCRIT 39.6 % (32.4-45.2); HEMOGLOBIN 12.9 GM/dL (10.7-15.3); LYMPH % 45.7 % (8-40); MCH 28.7 pg (25.7-33.7); MCHC 32.5 g/dl (32.0-36.0); MEAN CELL VOLUME 88.2 fl (80-96); MEAN PLT VOLUME 7.5 fl (7.5-11.1); MONO % 7.7 % (3.8-10.2); PLATELET COUNT 297 K/MM3 (134-434); RBC 4.49 M/mm3 (3.60-5.2); RDW 15.8 % (11.6-15.6); WHITE BLOOD COUNT 7.9 K/mm3 (4.0-10.0)
--- NOTE | 2018-01-22 20:25 | PDOC ---
History of Present Illness - General Chief Complaint: Weakness Stated Complaint: PCP SENT Time Seen by Provider: 01/22/18 19:23 - History of Present Illness Initial Comments: Patient is a 47 year old female, with a significant past medical history of RA, who presents to the emergency department complaining of one month of intermittent falls, in addition to BL symmetric proximal muscle and joint pain. 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 Pt endorses over the last 4-5 days she has noted onset of symmetric proximal joint and muscle pain in shoulders, upper back/neck, elbows, lower back, hips and knees, worsened with active and passive movement. Pt also endorses worsening swelling BL in her feet as well. Pt does not follow with a lead front end developer and does not take medication for RA. Was sent from clinic with ALISIA Azevedo today for further evaluation of worsening diffuse myalgias and joint pain and decreased strength in legs/R hand. Pt has chronic BL pain in knees secondary to RA, but has never had this diffuse pain presentation before. Pt follows with Dr. Escobar as outpt neurologist. The patient denies chest pain, shortness of breath, headache or dizziness. Denies fever, chills, nausea, vomiting, diarrhea and constipation. Denies dysuria, frequency, urgency and hematuria. Allergies: None Past surgical history: L knee surgery, 2 c-sections Social History: Current smoker, 1 PPD, Denies alcohol/drug use PMD: Dr. Huang 01/22/18 20:20 Past History - Past Medical History Allergies/Adverse Reactions: Allergies Allergy/AdvReac Type Severity Reaction Status Date / Time No Known Allergies Allergy Verified 09/22/17 18:39 Home Medications: Ambulatory Orders Sulfacetamide Sodium 10% [Bleph-10 Ophthalmic Solution -] 2 drop OU Q4H #2 bottle 03/09/17 Aspirin Coated [Ecotrin -] 81 mg PO DAILY tablet.ec 09/24/17 Atorvastatin Ca [Lipitor] 40 mg PO HS #30 tablet 09/24/17 Escitalopram Oxalate [Lexapro -] 10 mg PO DAILY #30 tablet 09/24/17 Gabapentin [Neurontin -] 100 mg PO TID #90 capsule 09/24/17 Metoprolol Succinate [Toprol Xl -] 25 mg PO DAILY #30 tab.sr.24h 09/24/17 Nicotine Patch [Nicoderm Patch -] 21 mg TD DAILY patch 09/24/17 Ibuprofen 800 mg PO TID #30 tablet 01/22/18 Methocarbamol [Robaxin -] 500 mg PO BID #14 tablet 01/22/18 Anemia: No Asthma: No Cancer: No Cardiac Disorders: No CVA: No COPD: No CHF: No DVT: No Dementia: No Diabetes: No GI Disorders: No Disorders: No HTN: Yes Hypercholesterolemia: Yes Liver Disease: No Seizures: No Thyroid Disease: No - Immunization History Immunization Up to Date: Yes - Suicide/Smoking/Psychosocial Hx Smoking Status: Yes Smoking History: Current every day smoker Have you smoked in the past 12 months: Yes Number of Cigarettes Smoked Daily: 20 Cigars Per Day: 0 Information on smoking cessation initiated: No 'Breaking Loose' booklet given: 03/09/17 Hx Alcohol Use: Yes (SOCIAL) Drug/Substance Use Hx: No Substance Use Type: None Hx Substance Use Treatment: No Review of Systems - Review of Systems Comments:: GENERAL/CONSTITUTIONAL: No fever or chills. Worsening LE weakness, frequent falls. HEAD, EYES, EARS, NOSE AND THROAT: No change in vision. No ear pain or discharge. No sore throat. CARDIOVASCULAR: No chest pain or shortness of breath RESPIRATORY: No cough, wheezing, or hemoptysis. GASTROINTESTINAL: No nausea, vomiting, diarrhea or constipation. GENITOURINARY: No dysuria, frequency, or change in urination. MUSCULOSKELETAL: Diffuse symmetric joint and muscle pain as described in HPI SKIN: No rash NEUROLOGIC: Worsening lower extremity weakness. R hand weakness. No headache, vertigo, loss of consciousness. No numbness in any distribution. ENDOCRINE: No increased thirst. No abnormal weight change HEMATOLOGIC/LYMPHATIC: No anemia, easy bleeding, or history of blood clots. ALLERGIC/IMMUNOLOGIC: No hives or skin allergy. 01/22/18 20:20 *Physical Exam - Vital Signs Last Vital Signs Temp Pulse Resp BP Pulse Ox 98.4 F 100 H 18 140/109 99 01/22/18 19:24 01/22/18 19:24 01/22/18 19:24 01/22/18 19:24 01/22/18 19:24 - Physical Exam Comments: GENERAL: Middle aged, Awake, alert, and fully oriented, in mild distress HEAD: No signs of trauma, normocephalic, atraumatic EYES: PERRLA, EOMI, sclera anicteric, conjunctiva clear ENT: Auricles normal inspection, hearing grossly normal, nares patent, oropharynx clear without exudates. Moist mucosa NECK: Normal ROM, supple, no lymphadenopathy, JVD, or masses LUNGS: No distress, speaks full sentences, clear to auscultation bilaterally HEART: Regular rate and rhythm, normal S1 and S2, no murmurs, rubs or gallops, peripheral pulses normal and equal bilaterally. ABDOMEN: Soft, nontender, normoactive bowel sounds. No guarding, no rebound. No masses EXTREMITIES : Exquisite pain on palpation of BL shoulder joints, lower back, elbow joints. Pain with passive and active joint movement in elbows, shoulder, knees, hips. Pain with flexion and extension, axial loading of neck. Normal inspection, Normal range of motion, trace pedal edema. No clubbing or cyanosis. NEUROLOGICAL: Cranial nerves II through XII grossly intact. Preserved sensation diffusely. Normal speech, slow gait. SKIN: Warm, Dry, normal turgor, no rashes or lesions noted 01/22/18 20:20 ED Treatment Course - LABORATORY CBC & Chemistry Diagram: 01/22/18 22:20 01/22/18 22:20 - ADDITIONAL ORDERS Additional order review: 01/22/18 19:35 RBC 4.49 MCV 88.2 MCHC 32.5 RDW 15.8 H MPV 7.5 Neutrophils % 42.0 L Lymphocytes % 45.7 H D Monocytes % 7.7 Eosinophils % 3.8 Basophils % 0.8 Medical Decision Making - Medical Decision Making Patient is a 47 year old female, with a significant past medical history of RA, who presents to the emergency department complaining of one month of intermittent falls, in addition to BL symmetric proximal muscle and joint pain. DDx includes RA flare, polymyalgia rheumatica, MS, polymyositis, fibromyalgia. Plan: - CBC, CMP, ESR, CRP, CK - IV Toradol and robaxin for pain control 01/22/18 23:07 Pt pain much improved with robaxin and toradol. Labs unremarkable. Pt counseled on importance of f/u with lead front end developer. Will discharge home with one week rx of robaxin and referral with Dr. Perez (rheumatology) *DC/Admit/Observation/Transfer Diagnosis at time of Disposition: Polymyalgia - Discharge Dispostion Disposition: HOME Condition at time of disposition: Good Decision to Admit order: No - Prescriptions Prescriptions: Ibuprofen 800 mg PO TID #30 tablet Methocarbamol [Robaxin -] 500 mg PO BID #14 tablet - Referrals Referrals: Juan David Huang MD [Primary Care Provider] - Ann Perez MD [Staff Physician] - 1 week - Patient Instructions Additional Instructions: During your visit to the [facility] ED, you were evaluated for diffuse pain in your muscles and joints. You received standard labs which were normal. You were given pain control with good response. You are being discharged home with outpatient follow-up with your primary care provider and are being provided a referral to see our lead front end developer, Dr. Perez. Please take tylenol 650mg every four hours if you experience fevers or aches until your symptoms resolve. You are being provided a prescription for Robaxin 500mg. Please take one pill by mouth, twice a day as needed. You are being provided a referral for follow-up with Dr. Perez, our lead front end developer for further evaluation of your muscle and joint pain. Please call the number provided in this packet to schedule an appointment within one week. If you experience any of the following symptoms, please return to the ED: - Persistent fevers/chills >3 days - worsening of your muscle and joint pain - Changes in vision, numbness/weakness in any extremities, or persistent dizziness/loss of consciousness - Any new or concerning symptoms - Post Discharge Activity
[2018-01-22 20:31] LABS: ALBUMIN 3.5 g/dl (3.4-5.0); ANION GAP 8 (8-16); BILIRUBIN,TOTAL 0.2 mg/dL (0.2-1.0); BLOOD UREA NITROGEN 6 mg/dL (7-18); CALCIUM 8.6 mg/dL (8.5-10.1); CHLORIDE 106 mmol/L (98-107); CO2 27 mmol/L (21-32); CREATININE 0.8 mg/dL (0.55-1.02); GLUCOSE,RANDOM 112 mg/dL (74-106); POTASSIUM 3.8 mmol/L (3.5-5.1); SGOT/AST 17 U/L (15-37); SGPT/ALT 20 U/L (12-78); SODIUM 141 mmol/L (136-145); TOT PROT 6.7 g/dl (6.4-8.2)
[2018-01-22 20:32] LABS: ALK PHOS 111 U/L (45-117)
--- NOTE | 2018-01-22 21:50 | PDOC ---
Attending Attestation - HPI HPI: 01/22/18 22:42 The patient is a 47 year old with history of rheumatoid arthritis who presents to the ED with complaints of diffuse joint pain and frequent falls for the past week. She reports pain to her shoulders, elbows, hips, knees, back and neck which is worsened with movement. She also reports falling more frequently without any head trauma or LOC. 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 Denies any other focal neurological deficits. Denies fevers or chills. - Medical Decision Making 01/22/18 22:42 Documentation prepared by Cara Diaz, acting as biomedical engineering professor for Mikhail Camacho MD. <Cara Diaz - Last Filed: 01/22/18 22:42> - Resident Resident Name: Bart Parish - ED Attending Attestation I have performed the following: I have examined & evaluated the patient, The case was reviewed & discussed with the resident, I agree w/resident's findings & plan, Exceptions are as noted - Physicial Exam PE: 01/22/18 23:08 *Physical Exam General Appearance: Yes: Appropriately Dressed. No: Apparent Distress, Intoxicated HEENT: positive: EOMI, JO-ANN, Normal ENT Inspection, Normal Voice, TMs Normal, Pharynx Normal. negative: Pale Conjunctivae, Photophobia, Scleral Icterus (R), Scleral Icterus (L) Neck: positive: Trachea midline, Normal Thyroid, Supple. negative: Tender, Rigid, Carotid bruit, Stridor, Lymphadenopathy (R), Lymphadenopathy (L), Thyromegaly Respiratory/Chest: positive: Lungs Clear, Normal Breath Sounds. negative: Chest Tender, Respiratory Distress, Accessory Muscle Use, Labored Respiration, RES, Crackles, Rales, Rhonchi, Stridor, Wheezing, Dullness Cardiovascular: positive: Regular Rhythm, Regular Rate, S1, S2. negative: Edema , JVD, Murmur, Bradycardia, Tachycardia Vascular Pulses: Dorsalis-Pedis (R): 2+, Doralis-Pedis (L): 2+ Gastrointestinal/Abdominal: positive: Normal Bowel Sounds, Flat, Soft. negative : Tender, Organomegaly, Pulsatile Mass, Increased Bowel Sounds, Decreased BS, Distended, Guarding, Rebound, Hernia, Hepatomegaly, Spleenomegaly Lymphatic: negative: Adenopathy, Tenderness Musculoskeletal: positive: Normal Inspection. negative: CVA Tenderness, Decreased Range of Motion Extremity: positive: Normal Capillary Refill, Normal Inspection, Normal Range of Motion, Pelvis Stable. negative: Tender, Pedal Edema, Swelling, Erythema Integumentary: positive: Normal Color, Dry, Warm. negative: Cyanotic, Erythema , Jaundice, Rash Neurologic: positive: stereotype molder II-XII NML intact, Fully Oriented, Alert, Normal Mood/ Affect, Motor Strength 5/5. negative: EOM Palsy, Facial Droop, Sensory Deficit - Medical Decision Making 01/22/18 23:08 Pt treated and released. Feels beeter after IV toradol and PO Robaxin <Mikhail Camacho - Last Filed: 01/22/18 23:12>
[2018-01-22] MEDS ORDERED: KETOROLAC TROMETHAMINE 30 MG/1 ML VIAL IM ONE ×2 (21:55→21:56)
[2018-01-22] MEDS ORDERED: METHOCARBAMOL 500 MG TABLET PO ONE (21:56)
[2018-01-22] MEDS ORDERED: KETOROLAC TROMETHAMINE 30 MG/1 ML VIAL ONE (21:57)
[2018-01-22] MEDS ORDERED: METHOCARBAMOL 500 MG TABLET ONE (22:17)
[2018-01-22 22:27] LABS: BASO % 1.5 % (0-2.0); EOS % 3.7 % (0-4.5); HEMATOCRIT 39.7 % (32.4-45.2); HEMOGLOBIN 12.9 GM/dL (10.7-15.3); LYMPH % 42.9 % (8-40); MCH 28.8 pg (25.7-33.7); MCHC 32.6 g/dl (32.0-36.0); MEAN CELL VOLUME 88.4 fl (80-96); MEAN PLT VOLUME 7.8 fl (7.5-11.1); MONO % 7.6 % (3.8-10.2); NEUT % 44.3 % (42.8-82.8); PLATELET COUNT 274 K/MM3 (134-434); RBC 4.49 M/mm3 (3.60-5.2); RDW 16.3 % (11.6-15.6); WHITE BLOOD COUNT 8.2 K/mm3 (4.0-10.0)
[2018-01-22 22:56] LABS: ALBUMIN 3.4 g/dl (3.4-5.0); ANION GAP 7 (8-16); BLOOD UREA NITROGEN 6 mg/dL (7-18); CALCIUM 8.6 mg/dL (8.5-10.1); CHLORIDE 106 mmol/L (98-107); CO2 28 mmol/L (21-32); CREATININE 0.7 mg/dL (0.55-1.02); GLUCOSE,RANDOM 106 mg/dL (74-106); SODIUM 141 mmol/L (136-145)
[2018-01-22 23:08] LABS: ALK PHOS 111 U/L (45-117); BILIRUBIN,TOTAL 0.3 mg/dL (0.2-1.0); SGPT/ALT 22 U/L (12-78); TOT PROT 6.7 g/dl (6.4-8.2)
[2018-01-22 23:12] LABS: POTASSIUM 3.7 mmol/L (3.5-5.1); SGOT/AST 21 U/L (15-37)
[2018-01-22 23:51] LABS: ERYTHROCYTE SEDIMENTATION RATE 18 mm/hr (0-20)
== END 2018-01-22 23:21 | disposition home or self-care (01) ==
LOC: JER 19:15
DX: M35.3 Polymyalgia rheumatica (principal); M06.89 Other specified rheumatoid arthritis, multiple sites; I10 Essential (primary) hypertension; E78.00 Pure hypercholesterolemia, unspecified; F17.210 Nicotine dependence, cigarettes, uncomplicated; Z79.82 Long term (current) use of aspirin
CPT/HCPCS: 36415; 80053; 82550; 82553; 85025; 85651; 86140; 99283-25